=== PATIENT | male | born 1950 | race Caucasian/White ===

== ENCOUNTER → 2020-07-30 | Outpatient (CLI) | payer MEDICARE, OTHER ==
[~2020-07-30] MED LIST: APAP500 PO; ATORVASTATIN CA40 MG PO; BRILINTA90 MG PO; IBUPROFEN 200200 M1 PO; LEVAQUIN 500 M500 MG PO; LO-DOSE ASPIRIN81 M1 PO; NICOTINE TRANSD21 M1; NITROGLYCERIN0.4 MG SUBLING; NORCO 5-325 TA1 EACH PO; ONDANSETRON HCL4 M2 PO; PROAIR HFA8.5 GM INH; ZANTAC 150MG T150 MG PO; ZOFRAN ODT4 MG PO
== END ==
LOC: M.ULTRA 13:30
PROVIDERS: ATTEND Internal Medicine Cardiovascular Disease
DX: I65.22 Occlusion and stenosis of left carotid artery (principal)